=== PATIENT | female | born 1945 | race Two or more races ===

== ENCOUNTER 2022-08-13 10:26 | Inpatient (IN) | payer MEDICARE, OTHER ==
[~2022-08-13] VITALS: Ht 160 cm; Wt 90.3 kg
[2022-08-13] MEDS ORDERED: SODIUM CHLORIDE 0.9% 1,000 ML IV ONE (12:15)
[2022-08-13] MEDS ORDERED: NITROGLYCERIN 0.4 MG SL TAB SL ONE (12:15)
[2022-08-13 12:26] LABS: Hematocrit 45.6 % (36.0-46.0); Mean Corpuscular Hemoglobin 30.3 pg (28.0-32.0); Mean Corpuscular Volume 91.8 fL (80.0-100.0); Red Blood Cells 4.96 10^6/uL (4.0-5.20); Red Cell Distribution Width 14.1 % (11.8-14.3); White Blood Cell 9.8 10^3/uL (4.4-10.8)
[2022-08-13 12:33] LABS: Albumin 3.6 g/dL (3.4-5.0); Calcium 8.5 mg/dL (8.5-10.1); Magnesium 2.4 mg/dL (1.6-2.6)
[2022-08-13 12:38] LABS: BUN/Creatinine Ratio 36.6; Bilirubin, Total 0.5 mg/dL (0.2-1.0); Total Protein 6.5 g/dL (6.4-8.2)
[2022-08-13 12:42] LABS: Basophils % (manual) 0 (0.0-2.0); Blast Cells 0; Metamyelocytes % 0; Promyelocytes % 0; Reactive Lymphocytes 0
[2022-08-13 13:27] LABS: Band Neutrophils % (manual) 3; Eosinophils % (manual) 2 (0-7); Lymphocytes % (manual) 51 (10.0-50.0); Monocytes % (manual) 10 (0-12); Myelocytes % 1
[2022-08-13 16:10] LABS: Urine Bacteria FEW /hpf (None Seen); Urine Blood Negative /uL (Negative); Urine Hyaline Cast FEW /lpf (0 - 2); Urine Specific Gravity 1.013 (1.001-1.035); Urine WBC 18 /hpf (0 - 5)
[2022-08-13] MEDS ORDERED: MAALOX PLUS or MAALOX 30 ML PO ONE (16:15)
[2022-08-13] MEDS ORDERED: NITROGLYCERIN 0.4 MG SL TAB SL PRN (16:15)
[2022-08-13] MEDS: ACETAMINOPHEN 325 MG TAB PO PRN (17:47)
[2022-08-13] MEDS: ATORVASTATIN 20 MG TAB PO SCH (21:34)
[2022-08-13] MEDS: ONDANSETRON HCL 4 MG/2 ML VIAL IV PRN (21:35)
[2022-08-13] MEDS: MORPHINE SULFATE 4 MG/ML SYR/VIAL IV PRN (21:50)
[2022-08-13] MEDS: CARVEDILOL 3.125 MG TAB PO SCH (22:59)
[2022-08-14] MEDS: ONDANSETRON HCL 4 MG/2 ML VIAL IV PRN ×2 (01:26→10:56)
[2022-08-14] MEDS: MORPHINE SULFATE 4 MG/ML SYR/VIAL IV PRN ×2 (01:26→10:56)
[2022-08-14 06:25] LABS: Hematocrit 43.4 % (36.0-46.0); Hemoglobin 14.6 g/dL (12.2-16.2); Mean Corpuscular Hemoglobin 30.8 pg (28.0-32.0); Mean Corpuscular Hgb Conc. 33.6 g/dL (32.0-36.0); Mean Corpuscular Volume 91.8 fL (80.0-100.0); Red Blood Cells 4.72 10^6/uL (4.0-5.20); Red Cell Distribution Width 14.6 % (11.8-14.3); White Blood Cell 7.9 10^3/uL (4.4-10.8)
[2022-08-14 06:45] LABS: Basophils % (manual) 0 (0.0-2.0); Blast Cells 0; Metamyelocytes % 0; Myelocytes % 0; Promyelocytes % 0; Reactive Lymphocytes 0
[2022-08-14 06:48] LABS: Potassium 4.6 mmol/L (3.5-5.1)
[2022-08-14 07:08] LABS: BUN/Creatinine Ratio 31.7; Calcium 8.9 mg/dL (8.5-10.1)
[2022-08-14 08:26] LABS: Band Neutrophils % (manual) 10; Eosinophils % (manual) 2 (0-7); Lymphocytes % (manual) 39 (10.0-50.0); Monocytes % (manual) 7 (0-12)
[2022-08-14] MEDS: ASPirin 81 mg TAB PO SCH (10:05)
[2022-08-14] MEDS: DOCUSATE SOD 100 MG CAP PO SCH (10:05)
[2022-08-14] MEDS: CLOPIDOGREL BISULFATE 75 MG TAB PO SCH (10:06)
[2022-08-14] MEDS: LISINOPRIL 5 MG TAB PO SCH (10:06)
[2022-08-14] MEDS: CARVEDILOL 3.125 MG TAB PO SCH ×2 (10:07→22:20)
[2022-08-14] MEDS ORDERED: cefTRIAXone 1GM/50ML D5W 50 ML IV ONE (11:30)
[2022-08-14 12:39] LABS: Cholesterol 158 mg/dL (< 200); HDL Cholesterol 64 mg/dL (40-59); LDL Cholesterol 80 mg/dL (< 100); Triglycerides 148 mg/dL (< 150)
[2022-08-14] MEDS: LORazepam 0.5 MG TAB PO PRN (22:20)
[2022-08-14] MEDS: ATORVASTATIN 20 MG TAB PO SCH (22:20)
[2022-08-14] MEDS: ACETAMINOPHEN 325 MG TAB PO PRN (22:40)
[2022-08-14 22:58] VITALS: BP 125/59
[2022-08-14] MEDS ORDERED: HYDR25TA5 PO (23:16)
[2022-08-14] MEDS ORDERED: ISOS1TAB37 PO (23:16)
[2022-08-14] MEDS ORDERED: ESOM40CA83 (23:16)
[2022-08-14] MEDS ORDERED: LOSA-69 PO (23:16)
[2022-08-14] MEDS ORDERED: ASPI-528 PO (23:16)
[2022-08-14] MEDS ORDERED: ROSU1TAB15 PO (23:17)
[2022-08-15] VITALS (8 sets, daily range): BP systolic 111–143; BP diastolic 37–71
[2022-08-15] MEDS ORDERED: ADENOSINE 72 MG in GIVE UN-DILUTED 0 ML IV STA (07:25)
[2022-08-15] MEDS: cefTRIAXone 1GM/50ML D5W 50 ML IV SCH (11:30)
[2022-08-15] MEDS: ASPirin 81 mg TAB PO SCH (11:32)
[2022-08-15] MEDS: CARVEDILOL 3.125 MG TAB PO SCH ×2 (11:33→22:21)
[2022-08-15] MEDS: LISINOPRIL 5 MG TAB PO SCH (11:33)
[2022-08-15] MEDS: DOCUSATE SOD 100 MG CAP PO SCH (11:33)
[2022-08-15] MEDS: CLOPIDOGREL BISULFATE 75 MG TAB PO SCH (11:33)
[2022-08-15] MEDS ORDERED: PANTOPRAZOLE 40 MG/10 ML VIAL INJ IV ONE (12:30)
[2022-08-15] MEDS: HYDROcodone-ACET 10/325MG TAB PO PRN ×2 (12:55→20:40)
[2022-08-15] MEDS: ATORVASTATIN 20 MG TAB PO SCH (22:21)
[2022-08-15] MEDS: LORazepam 0.5 MG TAB PO PRN (22:21)
[2022-08-16 05:00] VITALS: BP 124/53
[2022-08-16] MEDS: HYDROcodone-ACET 10/325MG TAB PO PRN ×3 (05:38→16:58)
[2022-08-16] MEDS: cefTRIAXone 1GM/50ML D5W 50 ML IV SCH (08:41)
[2022-08-16] MEDS: ASPirin 81 mg TAB PO SCH (08:44)
[2022-08-16] MEDS: CLOPIDOGREL BISULFATE 75 MG TAB PO SCH (08:45)
[2022-08-16] MEDS: CARVEDILOL 3.125 MG TAB PO SCH (08:53)
[2022-08-16] MEDS: LISINOPRIL 5 MG TAB PO SCH (08:54)
[2022-08-16 09:00] VITALS: BP 127/37
[2022-08-16] MEDS: DOCUSATE SOD 100 MG CAP PO SCH (09:04)
[2022-08-16] MEDS: LORazepam 0.5 MG TAB PO PRN ×2 (09:08→16:58)
[2022-08-16] MEDS ORDERED: PANTOPRAZOLE 40 MG/10 ML VIAL INJ IV SCH (10:00)
[2022-08-16] MEDS ORDERED: PANT40T PO (11:21)
[2022-08-16] MEDS ORDERED: CIPR-173 PO (11:21)
[2022-08-16 12:57] VITALS: BP 120/61
[2022-08-16 14:03] VITALS: BP 121/37
== END 2022-08-16 18:23 | disposition home or self-care (01) | DRG 313 ==
LOC: ER 10:26 → EDBD 10:26 → TELE 16:05 → TELE-WESTW 08-14 21:46 → TELE-E-ADS 08-16 16:05
PROVIDERS: ADMIT Hospitalist; ATTEND Family Medicine
DX: R07.9 Chest pain, unspecified (principal); N39.0 Urinary tract infection, site not specified; E66.9 Obesity, unspecified; G89.29 Other chronic pain; E78.5 Hyperlipidemia, unspecified; I10 Essential (primary) hypertension; I25.10 Atherosclerotic heart disease of native coronary artery without angina pectoris; I73.9 Peripheral vascular disease, unspecified; M47.9 Spondylosis, unspecified; Z20.822 Contact with and (suspected) exposure to COVID-19; R10.13 Epigastric pain; I25.2 Old myocardial infarction; Z98.61 Coronary angioplasty status; Z95.1 Presence of aortocoronary bypass graft; Z68.35 Body mass index [BMI] 35.0-35.9, adult
CPT/HCPCS: 36415; 71046; 74176; 78452; 80048; 80053; 80061; 81001; 83735; 84484; 85007; 85027; 87086; 87426; 93005; 93017; 93306; 93926; 96360; C9113; G0378; J0153; J0696; J2405